=== PATIENT | female | born 1980 | race Two or more races ===

== ENCOUNTER 2019-06-12 17:40 | Emergency (ER) | payer OTHER ==
[~2019-06-12] VITALS: Ht 154.9 cm; Wt 56.7 kg
[2019-06-12 18:05] VITALS: BP 113/75
[2019-06-12 18:09] LABS: BILIRUBIN,URINE NEGATIVE (NEG); CLARITY,URINE CLEAR; COLOR,URINE YELLOW; NITRITE,URINE NEGATIVE (NEG); PROTEIN,URINE NEGATIVE (NEG-TRACE); UROBILINOGEN,URINE 0.2 mg/dL (0.2 mg/dL)
[2019-06-12 18:13] LABS: BACTERIA,URINE FEW /HPF (0-FEW); RBC,URINE 0 /HPF (0-2); SQUAMOUS EPITHELIAL CELL,UR FEW /LPF; WBC,URINE 0 /HPF (0-4)
[2019-06-12 18:56] LABS: BASO # 0.1 x10^3/uL (0.0-0.2); BASO % 1 % (0-3); EOS # 0.1 x10^3/uL (0.0-0.7); EOS % 1 % (0-3); HEMATOCRIT 38.8 % (36.0-47.0); HEMOGLOBIN 13.1 g/dL (12.0-15.5); LYMPH # 1.9 x10^3/uL (1.0-4.8); LYMPH % 20 % (24-48); MEAN CORPUSCULAR HEMOGLOBIN 30 pg (25-35); MEAN CORPUSCULAR HGB CONC 34 g/dL (31-37); MEAN CORPUSCULAR VOLUME 90 fL (79-100); MONO # 0.4 x10^3/uL (0.0-1.1); MONO % 4 % (0-9); NEUT % 74 % (31-73); PLATELET COUNT 193 x10^3/uL (140-400); RED BLOOD COUNT 4.33 x10^6/uL (3.50-5.40); RED CELL DISTRIBUTION WIDTH 13.2 % (11.5-14.5); WHITE BLOOD COUNT 9.5 x10^3/uL (4.0-11.0)
[2019-06-12 19:09] LABS: CALCIUM 9.4 mg/dL (8.5-10.1); CREATININE 0.7 mg/dL (0.6-1.0); GFR 93.6; POTASSIUM 3.8 mmol/L (3.5-5.1)
[2019-06-12 19:15] LABS: ALBUMIN 3.7 g/dL (3.4-5.0); TOTAL BILIRUBIN 0.4 mg/dL (0.2-1.0); TOTAL PROTEIN 7.5 g/dL (6.4-8.2)
--- NOTE | 2019-06-12 19:56 | RAD ---
Transvaginal OB ultrasound less than 14 weeks 06/12/2019 CLINICAL HISTORY: First trimester with vaginal bleeding. TECHNIQUE: A transvaginal pelvic ultrasound study was performed. Multiple images were obtained. FINDINGS: An elongated gestational sac is seen within the endometrial canal within the body of the uterus. Within this gestational sac an embryonic pole and associated yolk sac are seen. The CRL of this embryonic pole measures 5.2 mm. This corresponds to an estimated gestational age by ultrasound of 6 weeks 2 days plus or minus a standard deviation of 5 days. No embryonic cardiac activity is seen. This finding is consistent with embryonic demise. The uterus is otherwise within normal limits. Both ovaries are within normal limits in size and echogenicity. The right ovary measures 2.7 x 1.6 x 1.3 cm in size. Left ovary measures 2.8 x 2.2 x 1.7 cm in size. No adnexal mass is seen. No free fluid is noted. IMPRESSION: Findings are seen consistent with embryonic demise. Electronically signed by: Sandro Ibanez MD (06/12/2019 7:53 PM) [facility]
--- NOTE | 2019-06-12 21:11 | PHYS DOC ---
Past Medical History Past Medical History: No Pertinent History (DIEGO CASTRO APRN) Past Surgical History: No Surgical History (DIEGO CASTRO APRN) Alcohol Use: None Drug Use: None (DIEGO CASTRO APRN) Adult General Chief Complaint Chief Complaint: VAGINAL BLEEDING [facility] HPI Patient is a 39 year old female 2 para 1 currently 6 weeks who presents to the ED today complaining of vaginal bleeding that began 3 days ago and has increasingly gotten more. Patient's also complaining of abdominal cramping rated as mild that began today. Denies any exacerbating or relieving factors to her abdominal cramping. Denies any nausea or vomiting. Patient denies soaking more than 1 feminine pad an hour. (DIEGO CASTRO APRN) Review of Systems Review of Systems Constitutional: Denies fever or chills [] Eyes: Denies change in visual acuity, redness, or eye pain [] HENT: Denies nasal congestion or sore throat [] Respiratory: Denies cough or shortness of breath [] Cardiovascular: No additional information not addressed in HPI [] GI: Reports vaginal bleeding and abdominal cramping, denies nausea, vomiting, bloody stools or diarrhea [] : Denies dysuria or hematuria [] Musculoskeletal: Denies back pain or joint pain [] Integument: Denies rash or skin lesions [] Neurologic: Denies headache, focal weakness or sensory changes [] All other systems were reviewed and found to be within normal limits, except as documented in this note. (DIEGO CASTRO APRN) Allergies Allergies Allergies Coded Allergies Type Severity Reaction Last Updated Verified No Known Drug Allergies 06/12/19 No (SHARYN QUINTANILLA DO) Physical Exam Physical Exam Constitutional: Well developed, well nourished, no acute distress, non-toxic appearance. [] HENT: Normocephalic, atraumatic, bilateral external ears normal, oropharynx moist, no oral exudates, nose normal. [] Eyes: PERRLA, EOMI, conjunctiva normal, no discharge. [] Neck: Normal range of motion, no tenderness, supple, no stridor. [] Cardiovascular:Heart rate regular rhythm, no murmur [] Lungs & Thorax: Bilateral breath sounds clear to auscultation [] Abdomen: Bowel sounds normal, soft, no tenderness, no masses, no pulsatile masses. [] Pelvic exam External pelvic appears normal, cervix is visualized, trace amount of blood noted in the cervical OS, no adnexal tenderness, no CMT. Skin: Warm, dry, no erythema, no rash. [] Back: No tenderness, no CVA tenderness. [] Extremities: No tenderness, no cyanosis, no clubbing, ROM intact, no edema. [] Neurologic: Alert and oriented X 3, normal motor function, normal sensory func tion, no focal deficits noted. [] Psychologic: Affect normal, judgement normal, mood normal. [] (DIEGO CASTRO APRN) Current Patient Data Vital Signs Vital Signs Date Time Temp Pulse Resp B/P (MAP) Pulse Ox O2 Delivery O2 Flow Rate FiO2 06/12/19 18:05 98.3 86 16 113/75 (88) 98 Room Air 98.3 (QUINTANILLA,SHARYN R DO) Lab Values Laboratory Tests Test 06/12/19 17:55 06/12/19 18:03 06/12/19 18:45 Urine Collection Type Void Urine Color Yellow Urine Clarity Clear Urine pH 6.0 Urine Specific [place] 1.015 Urine Protein Negative mg/dL (NEG-TRACE) Urine Glucose (UA) Negative mg/dL (NEG) Urine Ketones (Stick) Negative mg/dL (NEG) Urine Blood Negative (NEG) Urine Nitrite Negative (NEG) Urine Bilirubin Negative (NEG) Urine Urobilinogen Dipstick 0.2 mg/dL (0.2 mg/dL) Urine Leukocyte Esterase Negative (NEG) Urine RBC 0 /HPF (0-2) Urine WBC 0 /HPF (0-4) Urine Squamous Epithelial Cells Few /LPF Urine Bacteria Few /HPF (0-FEW) POC Urine HCG, Qualitative Hcg positive (Negative) White Blood Count 9.5 x10^3/uL (4.0-11.0) Red Blood Count 4.33 x10^6/uL (3.50-5.40) Hemoglobin 13.1 g/dL (12.0-15.5) Hematocrit 38.8 % (36.0-47.0) Mean Corpuscular Volume 90 fL (79-100) Mean Corpuscular Hemoglobin 30 pg (25-35) Mean Corpuscular Hemoglobin Concent 34 g/dL (31-37) Red Cell Distribution Width 13.2 % (11.5-14.5) Platelet Count 193 x10^3/uL (140-400) Neutrophils (%) (Auto) 74 % (31-73) H Lymphocytes (%) (Auto) 20 % (24-48) L Monocytes (%) (Auto) 4 % (0-9) Eosinophils (%) (Auto) 1 % (0-3) Basophils (%) (Auto) 1 % (0-3) Neutrophils # (Auto) 7.0 x10^3/uL (1.8-7.7) Lymphocytes # (Auto) 1.9 x10^3/uL (1.0-4.8) Monocytes # (Auto) 0.4 x10^3/uL (0.0-1.1) Eosinophils # (Auto) 0.1 x10^3/uL (0.0-0.7) Basophils # (Auto) 0.1 x10^3/uL (0.0-0.2) Maternal Serum HCG Beta Subunit 42711 mIU/mL (0-5) H Sodium Level 141 mmol/L (136-145) Potassium Level 3.8 mmol/L (3.5-5.1) Chloride Level 104 mmol/L (98-107) Carbon Dioxide Level 25 mmol/L (21-32) Anion Gap 12 (6-14) Blood Urea Nitrogen 13 mg/dL (7-20) Creatinine 0.7 mg/dL (0.6-1.0) Estimated GFR (Cockcroft-Gault) 93.6 BUN/Creatinine Ratio 19 (6-20) Glucose Level 92 mg/dL (70-99) Calcium Level 9.4 mg/dL (8.5-10.1) Total Bilirubin 0.4 mg/dL (0.2-1.0) Aspartate Amino Transferase (AST) 11 U/L (15-37) L Alanine Aminotransferase (ALT) 14 U/L (14-59) Alkaline Phosphatase 56 U/L (46-116) Total Protein 7.5 g/dL (6.4-8.2) Albumin 3.7 g/dL (3.4-5.0) Albumin/Globulin Ratio 1.0 (1.0-1.7) Laboratory Tests 06/12/19 18:45 Laboratory Tests 06/12/19 18:45 Microbiology 06/12/19 Wet Prep - Final, Complete (QUINTANILLA,SHARYN R DO) EKG EKG [] (DIEGO CASTRO APRN) Radiology/Procedures Radiology/Procedures []PROCEDURE: OB TRANSVAG Transvaginal OB ultrasound less than 14 weeks 06/12/2019 CLINICAL HISTORY: First trimester with vaginal bleeding. TECHNIQUE: A transvaginal pelvic ultrasound study was performed. Multiple images were obtained. FINDINGS: An elongated gestational sac is seen within the endometrial canal within the body of the uterus. Within this gestational sac an embryonic pole and associated yolk sac are seen. The CRL of this embryonic pole measures 5.2 mm. This corresponds to an estimated gestational age by ultrasound of 6 weeks 2 days plus or minus a standard deviation of 5 days. No embryonic cardiac activity is seen. This finding is consistent with embryonic demise. The uterus is otherwise within normal limits. Both ovaries are within normal limits in size and echogenicity. The right ovary measures 2.7 x 1.6 x 1.3 cm in size. Left ovary measures 2.8 x 2.2 x 1.7 cm in size. No adnexal mass is seen. No free fluid is noted. IMPRESSION: Findings are seen consistent with embryonic demise. Electronically signed by: Sandro Ibanez MD (06/12/2019 7:53 PM) [facility] DICTATED and SIGNED BY: SANDRO IBANEZ MD DATE: 06/12/191952 (DIEGO CASTRO APRN) Course & Med Decision Making Course & Med Decision Making Pertinent Labs and Imaging studies reviewed. (See chart for details) This is a 39-year-old female patient 2 para 1 currently 6 weeks complaining of vaginal bleeding that began 3 days ago and has increasingly gotten more. On pelvic exam she had small amount of blood in the vaginal vault. Positive urine hCG, beta-hCG 21,082. Hemoglobin and hematocrit are normal. CBC w ith a normal WBC. CMP would not acute findings, urine analysis negative for UTI, wet prep negative for infection. Blood group or positive. Pelvic ultrasound noted for demise. Information was relayed to patient through the manager of development for [place] she brought to the ED with. She was discharged to home follow up with the DIRECTOR CLIENT SERVICES. Provided return precautions. (DIEGO CASTRO APRN) Dragon Disclaimer Dragon Disclaimer This electronic medical record was generated, in whole or in part, using a voice recognition dictation system. (DIEGO CASTRO APRN) Departure Departure Impression: Primary Impression: demise Disposition: HOME, SELF-CARE Condition: STABLE Referrals: DEANDRE BONDS MD (PCP) You can also follow-up with your primary care doctor HUGH CEBALLOS MD Follow up in 2 days Patient Instructions: Intrauterine Demise Additional Instructions: You have related to the emergency room on noted to have demise. Please follow-up with your DIRECTOR CLIENT SERVICES or the provided DIRECTOR CLIENT SERVICES or your primary care doctor in 2 days. Please note will have increased abdominal pain as well as bleeding for the next 7-14 days. Please come back to the ED at any point symptoms worsen. You can take the medicines prescribed as needed for pain Scripts Hydrocodone/Apap 5-325 (NORCO 5-325 TABLET) 1 Each Tablet 1 TAB PO Q6HRS, #14 TAB Prov: DIEGO CASTRO APRN 06/12/19 Attending Signature Attending Signature I have reviewed the PA/BRUSHER's note and plan of care. I was available for consultation as needed during the patient's visit in the emergency department. I agree with the clinical impression, plan, and disposition. (SHARYN QUINTANILLA DO) DIEGO CASTRO APRN Jun 12, 2019 21:11 SHARYN QUINTANILLA DO Jun 13, 2019 04:12
[2019-06-12] MEDS ORDERED: HYDR-3164 PO (21:22)
[2019-06-14 17:09] LABS: GC PROBE Negative (Negative)
== END 2019-06-12 21:29 | disposition home or self-care (01) ==
LOC: ER 17:40
DX: O02.1 Missed abortion (principal)
CPT/HCPCS: 36415; 76817; 80053; 81001; 81025; 84702; 85025; 86850; 86900; 86901; 87491; 87591; 99285; Q0111

== ENCOUNTER 2019-06-13 08:31 | Emergency (ER) | payer OTHER ==
[~2019-06-13] VITALS: Ht 157.5 cm; Wt 56.7 kg
[~2019-06-13 08:31] MED LIST: HYDR-3164 PO
--- NOTE | 2019-06-13 10:05 | PHYS DOC ---
Past Medical History Past Medical History: No Pertinent History Past Surgical History: No Surgical History Alcohol Use: None Drug Use: None Adult General Chief Complaint Chief Complaint: VAGINAL BLEEDING HPI HPI Patient is a 39 year old female who presents with came in yesterday for vaginal bleeding and abdominal pain and . 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 Patient was sent home with strict follow-up to follow-up with Dr. Yoder in 2 days or her primary care provider and was given hydrocodone. Patient did not fill the hydrocodone because she states it was late when she got home. Patient states that all night long she has been in 10 out of 10 severe cramping pain and states that she cannot stand anymore and called EMS morning. Patient's is here for pain control. Review of Systems Review of Systems Constitutional: Denies fever or chills [] GI: abdominal pain, denies nausea, vomiting, bloody stools or diarrhea [] : Denies dysuria or hematuria [] Musculoskeletal: Denies back pain or joint pain [] Integument: Denies rash or skin lesions [] Neurologic: Denies headache, focal weakness or sensory changes [] All other systems were reviewed and found to be within normal limits, except as documented in this note. Current Medications Current Medications Current Medications Medications (Trade) Dose Ordered Sig/Faby Start Time Stop Time Status Last Admin Dose Admin Acetaminophen/ Hydrocodone Bitart (Lortab 5/325) 1 tab 1X ONCE 06/13/19 10:15 06/13/19 10:16 DC 06/13/19 10:21 1 TAB Allergies Allergies Allergies Coded Allergies Type Severity Reaction Last Updated Verified No Known Drug Allergies 06/12/19 No Physical Exam Physical Exam Constitutional: Well developed, well nourished, no acute distress, non-toxic appearance. [] Abdomen: Bowel sounds normal, soft, no tenderness, no masses, no pulsatile masses. Vaginal bleeding (see pelvic exam) [] Skin: Warm, dry, no erythema, no rash. [] Neurologic: Alert and oriented X 3, normal motor function, normal sensory function, no focal deficits noted. [] Psychologic: Affect normal, judgement normal, mood normal. [] Current Patient Data Vital Signs Vital Signs Date Time Temp Pulse Resp B/P (MAP) Pulse Ox O2 Delivery O2 Flow Rate FiO2 06/13/19 10:22 76 18 97/66 (76) 96 Room Air 06/13/19 09:20 98.3 98.3 Lab Values Laboratory Tests Test 06/13/19 10:00 White Blood Count 18.0 x10^3/uL (4.0-11.0) H Red Blood Count 4.55 x10^6/uL (3.50-5.40) Hemoglobin 13.4 g/dL (12.0-15.5) Hematocrit 39.9 % (36.0-47.0) Mean Corpuscular Volume 88 fL (79-100) Mean Corpuscular Hemoglobin 29 pg (25-35) Mean Corpuscular Hemoglobin Concent 34 g/dL (31-37) Red Cell Distribution Width 13.2 % (11.5-14.5) Platelet Count 189 x10^3/uL (140-400) Neutrophils (%) (Auto) 90 % (31-73) H Lymphocytes (%) (Auto) 5 % (24-48) L Monocytes (%) (Auto) 4 % (0-9) Eosinophils (%) (Auto) 0 % (0-3) Basophils (%) (Auto) 1 % (0-3) Neutrophils # (Auto) 16.3 x10^3/uL (1.8-7.7) H Lymphocytes # (Auto) 0.9 x10^3/uL (1.0-4.8) L Monocytes # (Auto) 0.7 x10^3/uL (0.0-1.1) Eosinophils # (Auto) 0.0 x10^3/uL (0.0-0.7) Basophils # (Auto) 0.1 x10^3/uL (0.0-0.2) Segmented Neutrophils % 89 % (35-66) H Band Neutrophils % 5 % (0-9) Lymphocytes % 3 % (24-48) L Monocytes % 3 % (0-10) Platelet Estimate Adequate (ADEQUATE) Maternal Serum HCG Beta Subunit 9809 mIU/mL (0-5) H Sodium Level 138 mmol/L (136-145) Potassium Level 3.5 mmol/L (3.5-5.1) Chloride Level 103 mmol/L (98-107) Carbon Dioxide Level 21 mmol/L (21-32) Anion Gap 14 (6-14) Blood Urea Nitrogen 13 mg/dL (7-20) Creatinine 0.7 mg/dL (0.6-1.0) Estimated GFR (Cockcroft-Gault) 93.6 BUN/Creatinine Ratio 19 (6-20) Glucose Level 99 mg/dL (70-99) Calcium Level 9.3 mg/dL (8.5-10.1) Total Bilirubin 1.0 mg/dL (0.2-1.0) Aspartate Amino Transferase (AST) 13 U/L (15-37) L Alanine Aminotransferase (ALT) 12 U/L (14-59) L Alkaline Phosphatase 63 U/L (46-116) Total Protein 7.9 g/dL (6.4-8.2) Albumin 3.8 g/dL (3.4-5.0) Albumin/Globulin Ratio 0.9 (1.0-1.7) L Laboratory Tests 06/13/19 10:00 Laboratory Tests 06/13/19 10:00 EKG EKG [] Radiology/Procedures Radiology/Procedures [] Course & Med Decision Making Course & Med Decision Making Patient is a 39 year old female who presents with came in yesterday for vaginal bleeding and abdominal pain and . 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 Patient was sent home with strict follow-up to follow-up with Dr. Yoder in 2 days or her primary care provider and was given hydrocodone. Patient did not fill the hydrocodone because she states it was late when she got home. Patient states that all night long she has been in 10 out of 10 severe cramping pain and states that she cannot stand anymore and called EMS morning. Patient's is here for pain control. Patient states her pain was a 10 out of 10 on night. Patient states her pain is currently a 7 out of 10. Patient states yesterday and last night she had heavy bleeding. Abdomen is soft and nontender. Patient's vital signs are within normal limits. Upon pelvic exam the cervical os is open and there is a large clump of tissue that looks like a sack in the vaginal vault. It is removed. There is a [id number]-[id number] amount of bleeding. Patient to follow-up with Dr. Yoder in the next couple of days as previously planned. Patient to call today. Patient to get her [place] prescription filled today at [facility] or [facility]. Pelvic Exam: Culture Manager present Abdomen: Nontender External Genitalia: Normal Skin Speculum: Normal vaginal mucosa, Bloody cervical discharge, Large tissue sac Bimanual: No adnexal masses or tenderness, No CMT Dragon Disclaimer Dragon Disclaimer This electronic medical record was generated, in whole or in part, using a voice recognition dictation system. Departure Departure Impression: Primary Impression: Abdominal pain Disposition: HOME, SELF-CARE Condition: STABLE Referrals: DEANDRE BONDS MD (PCP) HUGH YODER MD Patient Instructions: Miscarriage Additional Instructions: Follow up with Dr Yoder in next couple of days as planned. Call today. Get your pain prescription filled at [facility] or [facility] today. Problem Qualifiers Primary Impression: Abdominal pain Abdominal location: unspecified location Qualified Codes: R10.9 - Unspecified abdominal pain MARIE BUSTILLOS APRN Jun 13, 2019 10:05
[2019-06-13 10:11] LABS: BASO # 0.1 x10^3/uL (0.0-0.2); BASO % 1 % (0-3); EOS % 0 % (0-3); HEMATOCRIT 39.9 % (36.0-47.0); HEMOGLOBIN 13.4 g/dL (12.0-15.5); LYMPH # 0.9 x10^3/uL (1.0-4.8); LYMPH % 5 % (24-48); MEAN CORPUSCULAR HEMOGLOBIN 29 pg (25-35); MEAN CORPUSCULAR HGB CONC 34 g/dL (31-37); MEAN CORPUSCULAR VOLUME 88 fL (79-100); MONO # 0.7 x10^3/uL (0.0-1.1); MONO % 4 % (0-9); NEUT # 16.3 x10^3/uL (1.8-7.7); NEUT % 90 % (31-73); PLATELET COUNT 189 x10^3/uL (140-400); RED BLOOD COUNT 4.55 x10^6/uL (3.50-5.40); RED CELL DISTRIBUTION WIDTH 13.2 % (11.5-14.5)
[2019-06-13] MEDS ORDERED: HYDROcodone/APAP 5/325MG 1 TAB TABLET PO ONE (10:15)
[2019-06-13 10:27] LABS: CALCIUM 9.3 mg/dL (8.5-10.1); CREATININE 0.7 mg/dL (0.6-1.0); GFR 93.6; POTASSIUM 3.5 mmol/L (3.5-5.1)
[2019-06-13 10:33] LABS: ALBUMIN 3.8 g/dL (3.4-5.0); ALBUMIN/GLOBULIN RATIO 0.9 (1.0-1.7); TOTAL PROTEIN 7.9 g/dL (6.4-8.2)
[2019-06-13 11:13] LABS: % BANDS 5 % (0-9); % LYMPHS 3 % (24-48); % MONOS 3 % (0-10); % SEGS 89 % (35-66); PLT ESTIMATE ADEQUATE (ADEQUATE)
[2019-06-13 11:22] VITALS: BP 89/62
== END 2019-06-13 11:30 | disposition home or self-care (01) ==
LOC: ER 08:31
DX: O46.91 Antepartum hemorrhage, unspecified, first trimester (principal); R10.9 Unspecified abdominal pain; Z3A.01 Less than 8 weeks gestation of pregnancy
CPT/HCPCS: 36415; 80053; 84702; 85007; 85025; 99284

== ENCOUNTER → 2020-03-25 | Outpatient (CLI) | payer OTHER ==
--- NOTE | 2020-03-25 14:59 | KCIC ---
PROCEDURE: HAND LEFT 3V STUDY DATE: 03/25/2020 CLINICAL INDICATION / HISTORY: Reason: LEFT POINTER FINGER PAIN XS 2 YRS INCREASING, NO KNOWN INJURY / Spl. Instructions: / History: . TECHNIQUE: PA, lateral and oblique views of the left hand. COMPARISON: None FINDINGS: An intramedullary mass in the proximal aspect of the proximal phalanx second digit is present measuring 1.9 cm long by 0.9 cm wide and causing some endosteal scalloping but no periosteal elevation is seen. No fracture or dislocation is identified. The bone density is otherwise normal. The joint spaces are maintained, and there are no erosions to suggest an inflammatory arthropathy. The soft tissues are unremarkable. IMPRESSION: Intramedullary osteolytic lesion in the proximal phalanx of the left index finger. This most likely represents an enchondroma but given symptoms of pain, recommend MRI with and without IV contrast in further evaluation. Electronically signed by: Jewel Anderson MD (03/25/2020 2:57 PM) [id number]
== END | disposition home or self-care (01) ==
LOC: KCIC 13:52
PROVIDERS: ATTEND Family Medicine
DX: M89.542 Osteolysis, left hand (principal)
CPT/HCPCS: 73130

== ENCOUNTER → 2020-04-08 | Outpatient (CLI) | payer OTHER ==
--- NOTE | 2020-04-08 12:28 | KCIC ---
Examination: MRI of the left hand without contrast HISTORY: History of left second digit pain COMPARISON: Radiograph from 03/25/2020 TECHNIQUE: Multiplanar, multisequence MR imaging of the left hand were performed without contrast. FINDINGS: The alignment of the metacarpophalangeal joints, interphalangeal grossly appears unremarkable. There is a 2.2 cm lytic lesion (isointense T1 signal and high T2 signal close ) identified in the proximal phalanx of the second digit without cortical disruption and no extra-articular extension possibly an enchondroma. However examination is limited due to lack of IV contrast. There is no acute fracture or dislocation identified The visualized flexor, extensor tendons grossly appears unremarkable IMPRESSION: 1. 2.2 cm lytic lesion (isointense T1 signal and high T2 signal close ) identified in the proximal phalanx of the second digit without cortical disruption and no extra-articular extension possibly an enchondroma. However examination is limited due to lack of IV contrast. Continued follow-up is recommended to document stability. Electronically signed by: John Shelby MD (04/08/2020 12:25 PM) [id number]
== END | disposition home or self-care (01) ==
LOC: KCIC MRI 10:31
PROVIDERS: ATTEND Family Medicine
DX: M79.645 Pain in left finger(s) (principal); R93.89 Abnormal findings on diagnostic imaging of other specified body structures
CPT/HCPCS: 73218; 73221